=== PATIENT | female | born 1980 | race Caucasian/White ===

== ENCOUNTER → 2016-04-21 | Outpatient (CLI) | payer BC, OTHER ==
[2016-04-21 12:09] LABS: HEMATOCRIT 45.7 % (37.0-47.0); HEMOGLOBIN 14.6 g/dL (12.0-16.0); MEAN CORPUSCULAR HEMOGLOBIN 26.9 PG (27-31); MEAN CORPUSCULAR HGB CONC 31.9 g/dL (33-37); MEAN PLATELET VOLUME 11.5 FL (7.4-12.2); RDW COEFFICIENT OF VARIATION 14.3 % (11.5-14.5); RED BLOOD COUNT 5.42 10^6/uL (4.20-5.40); WHITE BLOOD COUNT 10.29 10^3/uL (4.8-10.8)
[2016-04-21 12:23] LABS: ASPARTATE AMINO TRANSFERASE 35 IU/L (8-39); BILIRUBIN,TOTAL 0.5 mg/dL (0.3-1.2); BLOOD UREA NITROGEN 18 mg/dL (7-22); BUN/CREATININE RATIO 25.71 (6-20); CALCIUM 10.2 mg/dL (8.7-10.7); CHLORIDE 103 meq/L (98-112); CREATININE 0.7 mg/dL (0.50-1.20); EST GLOMERULAR FILTRATION > 60 (>60 ml/min/1.73m(2)); GLUCOSE 68 mg/dL (78-110); POTASSIUM 4.4 meq/L (3.8-5.2); SODIUM 144 meq/L (135-145); TOTAL PROTEIN 8.6 g/dL (6.1-8.0)
[2016-04-21 12:25] LABS: PROTHROMBIN TIME 10.7 secs (9.7-11.4)
== END ==
LOC: MOB LAB 10:27
PROVIDERS: ATTEND Orthopaedic Surgery
DX: Z01.812 Encounter for preprocedural laboratory examination (principal); S46.021A Laceration of muscle(s) and tendon(s) of the rotator cuff of right shoulder, initial encounter
CPT/HCPCS: 36415; 80053; 85027; 85610

== ENCOUNTER → 2016-09-25 | Outpatient (CLI) | payer BC, OTHER ==
--- NOTE | 2016-09-25 11:15 | DI ---
XR FOOT COMPLETE MIN 3VW,09/25/2016 9:26 AM: Clinical History: Pain on the top of the left foot. Previous Exam: None at this facility. Findings: 3 views of the left foot are obtained, and demonstrate anatomic alignment without fractures. There is some mild soft tissue swelling noted. A toe ring is noted over the second digit. Impression: No fracture.
== END ==
LOC: RAD 09:27
PROVIDERS: ATTEND Physician Assistant
DX: M79.672 Pain in left foot (principal); M79.89 Other specified soft tissue disorders; X50.1XXA Overexertion from prolonged static or awkward postures, initial encounter
CPT/HCPCS: 73630